=== PATIENT | female | born 1980 | race Caucasian/White ===

== ENCOUNTER 2016-10-26 03:23 | Emergency (ER) | payer BC ==
[2016-10-26 03:33] VITALS: BP 103/65; PULSE 98; TEMP 98.7; BMI 25.4
--- NOTE | 2016-10-26 03:39 | PDOC ---
History of Present Illness - General Chief Complaint: Psychiatric Stated Complaint: BIBA, ANXIETY Time Seen by Provider: 10/26/16 03:39 History Source: Patient Exam Limitations: No Limitations - History of Present Illness Initial Comments: 10/26/16 03:39 This is a 36-year-old female brought in by EMS for anxiety panic attack. Patient was given Versed fluids and an antiemetic prior to coming in. By the time patient got emergency room she was feeling better. Patient denied any fevers or chills. Patient denies any abdominal pain. Patient denied any other complaints. PAST MEDICAL HISTORY: no significant history PAST SURGICAL HISTORY: no significant history FAMILY HISTORY: no pertinant history SOCIAL HISTORY: Pt lives with family and is employed. MEDICATIONS: reviewed ALLERGIES: As per nursing notes Review of Systems General: No fevers or chills, no weakness, no weight loss HEENT: No change in vision. No sore throat,. No ear pain CardioVascular: No chest pain or shortness of breath Respiratory:No cough, or wheezing. Gastrointestinal: no nausea, vomitting, diarrhea or constipation, No rectal bleeding Genitourinary: No dysuria, hematuria, or frequency Musculoskeletal: No joint or muscle pain or swelling Neurologic: No headache, vertigo, dizziness or loss of consciousness Psychiatric: Anxiety panic attack Skin: No rashes or easy bruising Endocrine: no increased thirst or abnormal weight change Allergic: no skin or latex allergy All other systems reviewed and normal Exam: General: Well-nourished well-developed individual, no acute distress HEENT: Throat: Normal, tonsils normal, no erythema or exudate Neck: Supple, no meningeal signs, no lymphadenopathy Eyes::Pupils equal reactive and round, extraocular motion intact Chest: Nontender to palpation Cardiac: S1-S2 normal, regular rate and rhythm, no murmurs rubs or gallops Respiratory: Lungs clear to auscultation bilateral Abdomen: Soft, nondistended, normal bowel sounds, nontender to palpation diffusely Extremities: Warm, dry, no cyanosis, clubbing, or edema Skin: No rashes Neuro: Alert and oriented x3, nonfocal exam, grossly intact, normal gait Psych: Normal mood and affect Assessment and plan: This is a 36-year-old female brought in by EMS for a panic attack. Patient was given Percocet by EMS prior to coming in and felt much better at the time she got here. Patient will call her mother to come pick her up and she can be discharged home. Past History - Past Medical History Allergies/Adverse Reactions: Allergies Allergy/AdvReac Type Severity Reaction Status Date / Time No Known Allergies Allergy Verified 01/15/14 21:19 Home Medications: Ambulatory Orders Norethindrone-E.estradiol-Iron [Microgestin Fe 1-20 Tablet] 1 each PO DAILY Psychiatric Problems: Yes (BIPOLAR) Thyroid Disease: No - Immunization History Immunization Up to Date: Yes (2014) - Psycho/Social/Smoking Cessation Hx Anxiety: No Suicidal Ideation: No Smoking History: Unknown if ever smoked Have you smoked in the past 12 months: No Number of Cigarettes Smoked Daily: 0 Information on smoking cessation initiated: No Hx Alcohol Use: No Drug/Substance Use Hx: No Substance Use Type: None *Physical Exam - Vital Signs Last Vital Signs Temp Pulse Resp BP Pulse Ox 98.7 F 98 H 16 103/65 100 10/26/16 03:26 10/26/16 03:26 10/26/16 03:26 10/26/16 03:10/26/16 03:26 *DC/Admit/Observation/Transfer Diagnosis at time of Disposition: Anxiety, Panic attack - Discharge Dispostion Disposition: HOME Condition at time of disposition: Good Admit: No - Patient Instructions Printed Discharge Instructions: DI for Panic Disorder Additional Instructions: Follow-up with a therapist. Return to the emergency department immediately with ANY new, persistent or worsening symptoms. Continue any medications as previously prescribed by your physician. You should follow up with your primary doctor as soon as possible regarding today's emergency department visit. . Please make sure your doctor reviews the results of your emergency evaluation. Thank you for coming to the Emergency Department today for your care. It was a pleasure to see you today. Please note that your evaluation is INCOMPLETE until you follow-up with your doctor.
== END 2016-10-26 04:25 | disposition home or self-care (01) ==
LOC: FER 03:23
DX: F41.9 Anxiety disorder, unspecified (principal); F41.0 Panic disorder [episodic paroxysmal anxiety]; F31.9 Bipolar disorder, unspecified
CPT/HCPCS: 99282-25

== ENCOUNTER 2022-04-25 17:02 | Emergency (ER) | payer OTHER ==
[2022-04-25 17:08] VITALS: BP 108/70; PULSE 61; RESP 18; TEMP 99; BMI 21.7
[2022-04-25] MEDS ORDERED: DIPHTH,PERTUSS(ACELL),TET 0.5 ML DISP.SYRIN IM ONE ×2 (17:31→17:35)
== END 2022-04-25 18:00 | disposition home or self-care (01) ==
LOC: FER 17:02
PROC: 3E0234Z Introduction of Serum, Toxoid and Vaccine into Muscle, Percutaneous Approach (ICD-10-PCS; principal; 2022-04-25)
DX: S91.031A Puncture wound without foreign body, right ankle, initial encounter (principal); W54.0XXA Bitten by dog, initial encounter
CPT/HCPCS: 90471; 90715; 99284-25